=== PATIENT | male | born 2000 | race American Indian/Alaskan Native ===

== ENCOUNTER 2024-01-13 02:23 | Emergency (ER) | payer BC ==
[2024-01-13] MEDS: LORazepam 0.5 MG Tab PO ONE (04:30)
== END 2024-01-13 04:32 | disposition home or self-care (01) ==
LOC: MW.ED 02:23
DX: F41.0 Panic disorder [episodic paroxysmal anxiety] (principal); S60.512A Abrasion of left hand, initial encounter; J02.9 Acute pharyngitis, unspecified; R03.0 Elevated blood-pressure reading, without diagnosis of hypertension; W55.03XA Scratched by cat, initial encounter
CPT/HCPCS: 87651; 99283; A9270

== ENCOUNTER 2024-02-04 00:11 | Emergency (ER) | payer BC ==
[2024-02-04] MEDS: Doxycycline 100 MG Cap PO ONE (01:59)
== END 2024-02-04 02:07 | disposition home or self-care (01) ==
LOC: MW.ED 00:11
DX: S60.419A Abrasion of unspecified finger, initial encounter (principal); W55.03XA Scratched by cat, initial encounter
CPT/HCPCS: 99282; 99283; A9270-GY

== ENCOUNTER 2024-02-05 19:43 | Emergency (ER) | payer BC ==
[2024-02-05] MEDS: LORazepam 0.5 MG Tab PO ONE (21:29)
[2024-02-05] MEDS: Rabies Vaccine (Avian) 2.5 Unit Inj Kit IM ONE (21:48)
== END 2024-02-05 22:06 | disposition home or self-care (01) ==
LOC: MW.ED 19:43
DX: F41.0 Panic disorder [episodic paroxysmal anxiety] (principal); S60.519A Abrasion of unspecified hand, initial encounter; Z23 Encounter for immunization; Z79.899 Other long term (current) drug therapy; W55.03XA Scratched by cat, initial encounter
CPT/HCPCS: 90471; 90675; 99283; A9270

== ENCOUNTER 2024-02-12 17:39 | Emergency (ER) | payer BC ==
[2024-02-12] MEDS: Rabies Vaccine (Avian) 2.5 Unit Inj Kit IM ONE (18:02)
== END 2024-02-12 18:21 | disposition home or self-care (01) ==
LOC: MW.ED 17:39
DX: Z23 Encounter for immunization (principal); Z29.14 Encounter for prophylactic rabies immune globulin
CPT/HCPCS: 90471; 90675; 99281-25